=== PATIENT | male | born 1950 | race Caucasian/White ===

== ENCOUNTER 2021-05-06 06:45 | Outpatient (CLI) | payer MEDICARE, BC | END 2021-05-06 06:46 | disposition home or self-care (01) | LOC: BICULT 06:45 | PROVIDERS: ATTEND Student in an Organized Health Care Education/Training Program | DX: Z13.6 Encounter for screening for cardiovascular disorders (principal) | CPT/HCPCS: 76775 ==

== ENCOUNTER 2022-09-06 12:36 | Observation (INO) | payer MEDICARE, BC ==
[2022-09-06] MEDS ORDERED: Ondansetron PF 4 MG/2 ML Vial ONE (13:08)
[2022-09-06 13:24] LABS: #Eosinphils 0.1 thou/uL (0.0-0.7); #Lymphocytes 0.4 thou/uL (1.20-3.40); #Monocytes 0.6 thou/uL (0.11-0.59); #Neutrophils 8.5 thou/uL (1.40-6.50); %Basophils 0.1 % (0.0-1.0); %Eosinophils 1.1 % (0.0-10.0); %Lymphocytes 4.3 % (21.0-51.0); %Monocytes 5.9 % (0.0-10.0); %Neutrophils 88.6 % (42.0-75.0); Hemoglobin 15.5 g/dL (14.0-18.0); Mean Corpuscular HGB CONC 32.5 g/dL (32.0-36.0); Mean Corpuscular Volume 89.2 fl (78.0-98.0); Mean Platelet Volume 6.9 fL (7.4-10.4); Platelet Count 209 10x3/uL (130-400); RBC Distribution Width 12.7 % (11.5-14.5); Red Blood Cell (RBC) Count 5.36 mill/uL (4.70-6.10); White Blood Cell (WBC) Count 9.6 10x3/uL (4.8-10.8)
[2022-09-06 13:41] LABS: ALT (SGPT) 13 U/L (8-55); AST (SGOT) 22 U/L (5-34); Albumin 4.2 g/dL (3.4-4.8); Alkaline Phosphatase 67 U/L (40-110); Anion Gap 14 mmol/L (10-20); BUN (Urea Nitrogen) 16 mg/dL (8.4-25.7); Bilirubin, Total 2.1 mg/dL (0.2-1.2); Calc. Creatinine Clearance 0 mL/min (70-130); Calcium 9.4 mg/dL (7.8-10.44); Carbon Dioxide 24 mmol/L (23-31); Chloride 103 mmol/L (98-107); Estimated GFR 89; Globulin 3.1 g/dL (2.4-3.5); Glucose 123 mg/dL (83-110); Lipase 11 U/L (8-78); Potassium 3.6 mmol/L (3.5-5.1); Protein, Total 7.3 g/dL (5.8-8.1); Sodium 137 mmol/L (136-145)
[2022-09-06] MEDS ORDERED: Senokot S 8.6-50 MG TAB PO PRN (14:33)
[2022-09-06] MEDS ORDERED: Ondansetron ODT 4 MG TAB PO PRN (14:33)
[2022-09-06] MEDS ORDERED: Ondansetron PF 4 MG/2 ML Vial IVP PRN (14:33)
[2022-09-06] MEDS ORDERED: Calcium Carbonate 500 MG ChewTAB PO PRN (14:33)
[2022-09-06] MEDS ORDERED: Acetaminophen 325 MG TAB PO PRN (14:33)
[2022-09-06] MEDS ORDERED: Pantoprazole 40 MG VIAL IVP SCH (14:45)
[2022-09-06 14:48] LABS: CKMB 1.5 ng/mL (0-6.6)
[2022-09-06 16:38] VITALS: BMI 33.0
[2022-09-06] MEDS: Sodium Chloride 0.9% 1,000 ML IV SCH (17:57)
[2022-09-06 18:06] LABS: Troponin I 0.044 ng/mL (< 0.028)
[2022-09-06 18:49] LABS: SARS-CoV-2 NAA Rapid Test Not Detected (NotDetected)
[2022-09-06] MEDS ORDERED: Atorvastatin Calcium 20 MG TAB PO SCH (21:00)
[2022-09-06 21:59] LABS: Troponin I 0.023 ng/mL (< 0.028)
[2022-09-07] MEDS: Sodium Chloride 0.9% 1,000 ML IV SCH ×2 (03:41→12:10)
[2022-09-07 04:48] LABS: #Eosinphils 0.1 thou/uL (0.0-0.7); #Lymphocytes 0.6 thou/uL (1.20-3.40); #Monocytes 0.6 thou/uL (0.11-0.59); #Neutrophils 4.6 thou/uL (1.40-6.50); %Basophils 0.2 % (0.0-1.0); %Eosinophils 1.2 % (0.0-10.0); %Lymphocytes 10.7 % (21.0-51.0); %Monocytes 10.4 % (0.0-10.0); %Neutrophils 77.5 % (42.0-75.0); Hemoglobin 13.4 g/dL (14.0-18.0); Mean Corpuscular HGB CONC 32.9 g/dL (32.0-36.0); Mean Corpuscular Hemoglobin 29.8 pg (27.0-31.0); Mean Corpuscular Volume 90.5 fl (78.0-98.0); Mean Platelet Volume 6.9 fL (7.4-10.4); Platelet Count 181 10x3/uL (130-400); RBC Distribution Width 12.7 % (11.5-14.5); White Blood Cell (WBC) Count 5.9 10x3/uL (4.8-10.8)
[2022-09-07 05:50] LABS: ALT (SGPT) 9 U/L (8-55); AST (SGOT) 17 U/L (5-34); Albumin 3.4 g/dL (3.4-4.8); Alkaline Phosphatase 49 U/L (40-110); Anion Gap 13 mmol/L (10-20); BUN (Urea Nitrogen) 14 mg/dL (8.4-25.7); Bilirubin, Total 2.1 mg/dL (0.2-1.2); Calc. Creatinine Clearance 115 mL/min (70-130); Calcium 8.2 mg/dL (7.8-10.44); Carbon Dioxide 22 mmol/L (23-31); Chloride 106 mmol/L (98-107); Estimated GFR 93; Globulin 2.5 g/dL (2.4-3.5); Glucose 96 mg/dL (83-110); Potassium 3.6 mmol/L (3.5-5.1); Protein, Total 5.9 g/dL (5.8-8.1); Sodium 137 mmol/L (136-145)
[2022-09-07] MEDS ORDERED: Pantoprazole 40 MG VIAL IVP SCH (09:00)
[2022-09-07 11:29] VITALS: TEMP 98.4
[2022-09-07 15:31] VITALS: BP 154/74
== END 2022-09-07 19:20 | disposition home or self-care (01) ==
LOC: SUATTDRO 12:36 → ERS 12:36 → 2SW 16:06
PROVIDERS: ADMIT Internal Medicine; ATTEND Internal Medicine
DX: R55 Syncope and collapse (principal); R10.9 Unspecified abdominal pain; R11.2 Nausea with vomiting, unspecified; R77.8 Other specified abnormalities of plasma proteins; I10 Essential (primary) hypertension; E78.5 Hyperlipidemia, unspecified; R19.5 Other fecal abnormalities; I08.8 Other rheumatic multiple valve diseases; E80.6 Other disorders of bilirubin metabolism; Z79.899 Other long term (current) drug therapy; Z20.822 Contact with and (suspected) exposure to COVID-19
CPT/HCPCS: 0241U; 71045; 80053 ×2; 82553; 83605; 83690; 84484 ×2; 85025 ×2; 93005 ×2; 93306; 96374; 99285; 36415; 82274; 93010; 96375; 96376; C9113; G0378; J2405; J7050